=== PATIENT | male | born 1950 | race Caucasian/White ===

== ENCOUNTER 2017-07-13 13:43 | Outpatient (CLI) | payer BC ==
--- NOTE | 2017-07-13 15:53 | ULT ---
CAROTID DUPLEX ULTRASOUND: 07/13/17 HISTORY: 66-year-old male with amaurosis fugax. Minimal visual plaque in the proximal ICAs bilaterally. PSV right ICA 81 cm/s. EDV 29 cm/s. ICA/CCA ratio 1.1. PSV left ICA 75 cm/s. EDV 19 cm/s. ICA/CCA ratio 0.7. Vertebral flow is antegrade. IMPRESSION: Mild visual plaque evidence for bilateral carotid artery vascular disease. no hemodynamically signifi cant stenosis. POS: [facility]
== END 2017-07-13 13:44 | disposition home or self-care (01) ==
LOC: ULT 13:43
PROVIDERS: ATTEND Specialist
DX: G45.3 Amaurosis fugax (principal); I65.23 Occlusion and stenosis of bilateral carotid arteries
CPT/HCPCS: 93880

== ENCOUNTER 2021-04-30 14:31 | Outpatient (CLI) | payer BC | END 2021-04-30 14:32 | disposition home or self-care (01) | LOC: BICRAD 14:31 | PROVIDERS: ATTEND Specialist | DX: M25.561 Pain in right knee (principal) ==

== ENCOUNTER 2023-09-06 12:46 | Outpatient (CLI) | payer MEDICARE, OTHER ==
[2023-09-06 13:35] LABS: Hematocrit 44.4 % (38.8-50.0); Hemoglobin 14.8 g/dL (13.5-17.5); Mean Corpuscular HGB CONC 33.3 g/dL (32.0-36.0); Mean Corpuscular Hemoglobin 28.1 pg (27.0-33.0); Mean Corpuscular Volume 84.3 fl (81.2-95.1); Mean Platelet Volume 10.7 fl (7.4-10.4); Platelet Count 194 10x3/uL (150-450); RBC Distribution Width 13.2 % (11.5-14.5); Red Blood Cell (RBC) Count 5.27 10x6/uL (4.32-5.72); White Blood Cell (WBC) Count 7.3 10x3/uL (3.5-10.5)
[2023-09-06 14:28] LABS: Anion Gap 11 mmol/L (10-20); BUN (Urea Nitrogen) 18 mg/dL (8.4-25.7); Calc. Creatinine Clearance 0 mL/min (70-130); Calcium 8.8 mg/dL (7.8-10.44); Carbon Dioxide 27 mmol/L (23-31); Chloride 107 mmol/L (98-107); Estimated GFR 57; Glucose 129 mg/dL (83-110); Potassium 4.6 mmol/L (3.5-5.1); Sodium 140 mmol/L (136-145)
[2023-09-06 14:39] LABS: PTT 28.2 sec (22.0-33.0); Prothrombin Time 10.6 sec (9.5-12.1)
== END 2023-09-06 12:47 | disposition home or self-care (01) ==
LOC: LABBT 12:46
PROVIDERS: ATTEND Urology
DX: Z01.812 Encounter for preprocedural laboratory examination (principal); N20.1 Calculus of ureter
CPT/HCPCS: 80048; 85027; 85610; 85730; 87086